=== PATIENT | male | born 1970 | race Two or more races ===

== ENCOUNTER → 2016-11-26 | Day surgery (SDC) | payer OTHER ==
[~2016-11-26] MED LIST: ALEVE220 M1 PO; CARAFATE1 GM PO; DEXILANT60 MG PO; PANTOPRAZOLE SO40 MG; PRILOSEC20 M1 PO; ZOFRAN PO; ZOLMITRIPTAN5 MG PO
--- NOTE | ~2016-11-26 | OR ---
Unit #: [id number] #: [id number] Patient: ESTHER DUTTON [id number] [address] [address] [id number] MR#: [id number] NAME: ESTHER DUTTON ROOM: Date of Procedure: 11/26/2016 Admission Date: 11/26/2016 Surgeon: Mohan Virk M.D. : 1970 Attending Physician: Mohan Virk M.D. Primary Care Physician: Primary Care Physician No OPERATIVE REPORT PRIMARY CARE PHYSICIAN Kelsi Martins M.D. PREOPERATIVE DIAGNOSES Epigastric pain and dyspepsia. The patient was seen in the emergency room at [facility] recently. PROCEDURES PERFORMED Upper gastrointestinal endoscopy. POSTOPERATIVE DIAGNOSES Completely normal examination up to third part of duodenum. RECOMMENDATIONS 1. The patient will be followed up in the office in 6 to 8 weeks' time. 2. He is being started on empiric pantoprazole 40 mg p.o. daily. 3. If he is still symptomatic, gallbladder studies including ultrasound and HIDA scan be needed. SEDATION USED MAC. DESCRIPTION OF PROCEDURE Following detailed explanation of potential risks and complications of an upper endoscopy, namely perforation, bleeding, and complications related to sedation, the patient was brought to GI lab and laid in the left lateral decubitus position. Lubricated tip of the Olympus video upper endoscope was passed through the bite block into the proximal esophagus under direct vision. The entire esophageal mucosa was examined and appeared normal. Z-line was nicely demarcated, there being no esophagitis or hiatus hernia. The scope was then advanced into the gastric cavity and the latter was insufflated. Mucosa of the fundus, body, and antrum examined and appeared unremarkable. Pylorus was intubated with visualization of the normal duodenal bulb and second and third part of the duodenum. Upon withdrawal and retroflexion, incisura, cardia, and greater curve examined and no additional findings noted. The scope was then withdrawn in the distal esophagus. The entire esophageal mucosa was examined all the way up to pharynx. No additional findings noted. The patient tolerated the procedure without any postprocedure complications. Dictated by... Unit #: [id number] #: [id number] Patient: ESTHER DUTTON M.D. AK/modl TD: 11/26/2016 22:05 JOB #: [id number] CC: Kelsi Martins M.D. OPERATIVE REPORT Page 1 of 1 X Mohan Virk MD X PROCEDURE OPERATIVE NOTE
== END | disposition home or self-care (01) ==
LOC: COPS 12:07
DX: R10.13 Epigastric pain (principal); Z87.891 Personal history of nicotine dependence; Z79.899 Other long term (current) drug therapy
CPT/HCPCS: J2250